=== PATIENT | male | born 1970 | race African-American/Black ===

== ENCOUNTER 2016-07-04 16:29 | Inpatient (IN) | payer SELFPAY ==
[2016-07-04] VITALS (8 sets, daily range): BP systolic 118–144; BP diastolic 79–101; PULSE 105–118; RESP 18–20; TEMP 98.5–100.6; O2SAT 97–100
[~2016-07-04] VITALS: Ht 180.3 cm; Wt 114.2 kg
[~2016-07-04 16:29] MED LIST: CYPR4TAB PO; PRED20 PO; Z.0.NO CURRENT MEDS
--- NOTE | 2016-07-04 16:58 | PD ---
HPI Chief Complaint: Cold / Flu Symptoms Time Seen by Provider: 16:48 Travel History International Travel<30 days: No Contact w/Intl Traveler<30days: No Traveled to known affect area: No History of Present Illness HPI This 45-year-old male says he been feeling weak for the last few days. He's had a sore throat and cough. He's had some loose stools. He is coughing up some thick phlegm. He does not smoke. He has no history of heart disease or hypertension. [facility] Past Medical History Medical History: Denies Significant Hx Diminished Hearing: No Hypertension: Yes Tetanus Vaccination: Unknown Influenza Vaccination: No Past Surgical History Surgical History: No Previous Surgery Social History Alcohol Use: No Tobacco Use: No Substance Use: No Allergies-Medications (Allergen,Severity, Reaction): Coded Allergies: No Known Allergies (Verified , 07/04/16) Reported Meds & Prescriptions Reported Meds & Active Scripts Active No Active Prescriptions or Reported Medications Review of Systems General / Constitutional: Positive: Fever, Chills Eyes: No: Diploplia, Blurred Vision Cardiovascular: No: Chest Pain or Discomfort, Palpitations Respiratory: Positive: Cough, Shortness of Breath, No: Hemoptysis Gastrointestinal: No: Vomiting Genitourinary: No: Urgency, Frequency Musculoskeletal: No: Myalgias Skin: No Rash Hematologic/Lymphatic: No: Easy Bruising Physical Exam Narrative GENERAL: Well-developed male. He has persistent tachycardia SKIN: Warm and dry. HEAD: Atraumatic. Normocephalic. EYES: Pupils equal and round. No scleral icterus. No injection or drainage. ENT: No nasal bleeding or discharge. Mucous membranes pink and moist. NECK: Trachea midline. No JVD. CARDIOVASCULAR: Regular rate and rhythm. No murmur appreciated. RESPIRATORY: No accessory muscle use. There are a few basilar rales Breath sounds equal bilaterally. GASTROINTESTINAL: Abdomen soft, non-tender, nondistended. Hepatic and splenic margins not palpable. MUSCULOSKELETAL: No obvious deformities. No clubbing. No cyanosis. No edema. NEUROLOGICAL: Awake and alert. No obvious cranial nerve deficits. Motor grossly within normal limits. Normal speech. PSYCHIATRIC: Appropriate mood and affect; insight and judgment normal. Data Data Last Documented VS Vital Signs Date Time Temp Pulse Resp B/P Pulse Ox O2 Delivery O2 Flow Rate FiO2 07/04/16 18:58 118 18 118/82 100 Room Air 1/12/17 16:48 100.6 Orders Influenzae A/B Antigen (07/04/16 16:49) Complete Blood Count With Diff (07/04/16 16:55) Basic Metabolic Panel (Bmp) (07/04/16 16:55) Sodium Chlor 0.9% 1000 Ml Inj (Ns 1000 M (07/04/16 17:00) Sodium Chlor 0.9% 1000 Ml Inj (Ns 1000 M (07/04/16 17:00) Acetaminophen (Tylenol) (07/04/16 17:00) Lactic Acid Sepsis Protocol (07/04/16 16:58) Chest, Single Ap (07/04/16 17:23) Blood Culture (07/04/16 17:34) Ceftriaxone Inj (Rocephin Inj) (07/04/16 17:45) Azithromycin Inj (Zithromax Inj) (07/04/16 17:45) B-Type Natriuretic Peptide (07/04/16 17:39) Ct Thorax/ Chest Wo Iv Contras (07/04/16 17:48) Urinalysis - C+S If Indicated (07/04/16 18:10) Troponin I (07/04/16 17:00) Electrocardiogram (07/04/16 18:49) Labs Laboratory Tests Test 07/04/16 07/04/16 15:55 17:00 B-Type Natriuretic Peptide 29 PG/ML White Blood Count 23.0 TH/MM3 Red Blood Count 4.99 MIL/MM3 Hemoglobin 11.9 GM/DL Hematocrit 37.3 % Mean Corpuscular Volume 74.7 FL Mean Corpuscular Hemoglobin 23.8 PG Mean Corpuscular Hemoglobin 31.8 % Concent Red Cell Distribution Width 18.9 % Platelet Count 462 TH/MM3 Mean Platelet Volume 8.2 FL Neutrophils (%) (Auto) 90.0 % Lymphocytes (%) (Auto) 5.1 % Monocytes (%) (Auto) 3.8 % Eosinophils (%) (Auto) 0.1 % Basophils (%) (Auto) 1.0 % Neutrophils # (Auto) 20.7 TH/MM3 Lymphocytes # (Auto) 1.2 TH/MM3 Monocytes # (Auto) 0.9 TH/MM3 Eosinophils # (Auto) 0.0 TH/MM3 Basophils # (Auto) 0.2 TH/MM3 CBC Comment AUTO DIFF Differential Comment AUTO DIFF CONFIRMED Sodium Level 138 MEQ/L Potassium Level 3.8 MEQ/L Chloride Level 100 MEQ/L Carbon Dioxide Level 26.2 MEQ/L Anion Gap 12 MEQ/L Blood Urea Nitrogen 10 MG/DL Creatinine 1.20 MG/DL Estimat Glomerular Filtration 80 ML/MIN Rate Random Glucose 150 MG/DL Lactic Acid Level 2.4 mmol/L Calcium Level 8.7 MG/DL Troponin I LESS THAN 0.02 NG/ML MDM Medical Decision Making Medical Screen Exam Complete: Yes Emergency Medical Condition: Yes Medical Record Reviewed: Yes Differential Diagnosis Differential includes influenza, pneumonia, Narrative Course His white count is quite elevated at 23,000. Chest x-ray is read as showing mild central pulmonary vascular congestion and cardiomegaly. CT thorax was obtained and shows moderate pericardial effusion. His lactate is elevated at 2.4 Sepsis Criteria SIRS Criteria (2 or more): Heart rate over 90, WBC > 07100, < 4000 or > 10% bands Severe Sepsis (+one): Lactate >2 Diagnosis Primary Impression: Sepsis Qualified Code: A41.9 - Sepsis, due to unspecified organism Scripts No Active Prescriptions or Reported Meds Imtiaz Philippe MD Jul 04, 2016 16:58
[2016-07-04] MEDS ORDERED: ACETAMINOPHEN 500 MG CPLT PO ONE (17:00)
[2016-07-04] MEDS ORDERED: SODIUM CHLOR 0.9% 1000 ML INJ 1,000 ML IV ONE ×2 (17:00)
[2016-07-04 17:23] LABS: AUTOMATED NEUTROPHIL # 20.7 TH/MM3 (1.8-7.7); BASOPHIL # 0.2 TH/MM3 (0-0.2); EOSINOPHIL % 0.1 % (0.0-4.0); HEMATOCRIT 37.3 % (39.0-51.0); LYMPH % 5.1 % (9.0-44.0); LYMPHOCYTE # 1.2 TH/MM3 (1.0-4.8); MEAN CELL VOLUME 74.7 FL (80.0-100.0); MEAN CORPUSCULAR HEMOGLOBIN 23.8 PG (27.0-34.0); MEAN CORPUSCULAR HGB CONC 31.8 % (32.0-36.0); MONO % 3.8 % (0.0-8.0); PLATELET COUNT 462 TH/MM3 (150-450); RED BLOOD COUNT 4.99 MIL/MM3 (4.50-5.90); RED CELL DISTRIBUTION WIDTH 18.9 % (11.6-17.2)
[2016-07-04 17:24] LABS: HEMO FLAGS AUTO DIFF
[2016-07-04 17:29] LABS: CHLORIDE 100 MEQ/L (98-107); POTASSIUM 3.8 MEQ/L (3.5-5.1); SODIUM (NA) 138 MEQ/L (136-145)
[2016-07-04 17:32] LABS: ANION GAP 12 MEQ/L (5-15); BICARBONATE 26.2 MEQ/L (21.0-32.0); BLOOD UREA NITROGEN 10 MG/DL (7-18)
[2016-07-04 17:35] LABS: GLOMERULAR FILTRATION RATE 80 ML/MIN (>89)
--- NOTE | 2016-07-04 17:42 | RADHPO ---
EXAM DATE/TIME: 07/04/2016 17:28 [facility] COMPARISON: No previous studies available for comparison. INDICATIONS : Patient states cough. MEDICAL HISTORY : None. SURGICAL HISTORY : None. ENCOUNTER: Initial ACUITY: 1 day PAIN SCORE: 1/10 LOCATION: Bilateral chest FINDINGS: The heart is enlarged. Mild central pulmonary vascular congestion is noted. CONCLUSION: 1. Mild central pulmonary vascular congestion. 2. Cardiomegaly. Angelito Goddard MD on July 04, 2016 at 17:33 Board Certified Radiologist. This report was verified electronically.
[2016-07-04] MEDS ORDERED: AZITHROMYCIN INJ 500 MG in SODIUM CHLOR 0.9% 250 ML INJ 250 ML IV ONE (17:45)
[2016-07-04] MEDS ORDERED: cefTRIAXone INJ 2,000 MG in SODIUM CHLORIDE 0.9% INJ 100 ML IV ONE (17:45)
[2016-07-04 17:49] LABS: SCAN/DIFF AUTO DIFF CONFIRMED
--- NOTE | 2016-07-04 18:48 | RADHPO ---
EXAM DATE/TIME: 07/04/2016 18:03 [facility] COMPARISON: No previous studies available for comparison. INDICATIONS : Weakness. Evaluate for pneumonia. RADIATION DOSE: 23.23 CTDIvol (mGy) MEDICAL HISTORY : Hypertension. SURGICAL HISTORY : None. ENCOUNTER: Initial ACUITY: 3 days PAIN SCALE: 0/10 LOCATION: Chest TECHNIQUE: Volumetric scanning of the chest was performed. Using automated exposure control and adjustment of the mA and/or kV according to patient size, radiation dose was kept as low as reasonab ly achievable to obtain optimal diagnostic quality images. FINDINGS: There is very minimal pleural thickening. There is no pleural effusion, pneumothorax or alveolar consolidation. There is no axillary or mediastinal adenopathy appreciated. The patient does have a moderate pericardial effusion. Portion of the liver and spleen identified ar e free of focal defects. CONCLUSION: Moderate size pericardial effusion. Jacob Ibrahim MD FACR on July 04, 2016 at 18:34 Board Certified Radiologist. This report was verified electronically.
[2016-07-04 19:15] LABS: LACTIC ACID GHOST NOT REPORTABLE
[2016-07-04] MEDS ORDERED: NALOXONE HCL 0.4 MG/ML AMP IV PRN (20:00)
[2016-07-04] MEDS ORDERED: SODIUM CHLORIDE 0.9% FLUSH 5 ML FLUSH FLUSH PRN (20:00)
[2016-07-04 20:16] LABS: BLOOD, URINE NEG (NEG); GLUCOSE,URINE NEG (NEG); KETONE, URINE NEG (NEG); NITRITE,URINE NEG (NEG); PH, URINE 5.5 (5.0-8.5)
[2016-07-04 20:24] LABS: BARBITURATES, URINE NEG (NEG); COCAINE, URINE NEG (NEG)
[2016-07-04 20:25] LABS: AMPHETAMINE, URINE NEG (NEG)
[2016-07-04 20:31] LABS: URINE COLOR YELLOW (YELLW/STRAW)
[2016-07-04 20:32] LABS: HYALINE CAST, URINE 0-2 /lpf (RARE); MUCUS URINE FEW /lpf (OCC)
[2016-07-04 20:33] LABS: COMMENT (UR) CULT NOT INDICATED; CULTURE IF INDICATED CULT NOT INDICATED; RBC, URINE 0-3 /hpf (0-3); SQUAMOUS EPITHELIAL CELL URINE 0-5 /hpf (0-5); WBC, URINE 0-2 /hpf (0-5)
[2016-07-04] MEDS: SODIUM CHLORIDE 0.9% FLUSH 5 ML FLUSH FLUSH SCH (20:53)
[2016-07-05] VITALS (7 sets, daily range): BP systolic 135–153; BP diastolic 92–110; PULSE 18–122; RESP 18–20; TEMP 98.8–101.6; O2SAT 9–100
[2016-07-05] MEDS ORDERED: ACETAMINOPHEN 325 MG TAB PO PRN (04:30)
[2016-07-05 06:28] LABS: AUTOMATED NEUTROPHIL # 20.8 TH/MM3 (1.8-7.7); BASOPHIL % 0.2 % (0.0-2.0); HEMATOCRIT 31.9 % (39.0-51.0); LYMPHOCYTE # 1.7 TH/MM3 (1.0-4.8); MEAN CELL VOLUME 74.4 FL (80.0-100.0); MEAN CORPUSCULAR HEMOGLOBIN 24.4 PG (27.0-34.0); MEAN CORPUSCULAR HGB CONC 32.8 % (32.0-36.0); MONO % 5.8 % (0.0-8.0); PLATELET COUNT 376 TH/MM3 (150-450); RED BLOOD COUNT 4.29 MIL/MM3 (4.50-5.90); RED CELL DISTRIBUTION WIDTH 18.6 % (11.6-17.2); WHITE BLOOD COUNT 23.9 TH/MM3 (4.0-11.0)
[2016-07-05 06:34] LABS: HEMO FLAGS AUTO DIFF; POTASSIUM 3.4 MEQ/L (3.5-5.1)
[2016-07-05 06:38] LABS: BICARBONATE 25.5 MEQ/L (21.0-32.0)
[2016-07-05 07:01] LABS: SCAN/DIFF AUTO DIFF CONFIRMED
[2016-07-05] MEDS: LEVOFLOXACIN 750 MG PREMIX INJ 150 ML IV SCH (08:29)
[2016-07-05] MEDS: SODIUM CHLORIDE 0.9% FLUSH 5 ML FLUSH FLUSH SCH ×2 (08:29→22:58)
[2016-07-05] MEDS ORDERED: POTASSIUM PHOSPHATE INJ 30 MMOL in SODIUM CHLOR 0.9% 250 ML INJ 250 ML IV ONE (10:00)
--- NOTE | 2016-07-05 10:53 | HHI.HP ---
[facility] Primary Care Physician No Primary Care Physician Admission Diagnosis SEPSIS Diagnoses: Chief Complaint: "Cold symptoms " Travel History International Travel<30 Days: No Contact w/Intl Traveler <30 Da: No Traveled to Known Affected Are: No History of Present Illness Patient is a 45-year-old gentleman who is generally healthy who has been evaluated the emergency room for fever symptoms for the last 2 days. He says he had a cold and cough and sinus congestion decreased appetite. He looked ill his mother told him he should come to the hospital. On arrival patient was tachycardic with a fever and leukocytosis. He is admitted for sepsis. Patient was noted on imaging to have pericardial effusion. He denies any heart history. Patient has no chest pain and he is not short of breath. He is not hypoxemic. This point the patient's EKG was reviewed by me and does appear to have some poor R-wave progression and is in normal sinus rhythm. For these reasons the patient was admitted to the hospital Review of Systems Constitutional: COMPLAINS OF: Fever, Change in appetite, Night Sweats, DENIES : Diaphoretic episodes, Fatigue, Weight gain, Weight loss, Chills, Dizziness Endocrine: DENIES: Heat/cold intolerance, Polydipsia, Polyuria, Polyphagia Eyes: DENIES: Blurred vision, Diplopia, Eye inflammation, Eye pain, Vision loss , Photosensitivity, Double Vision Ears, nose, mouth, throat: DENIES: Tinnitus, Hearing loss, Vertigo, Nasal discharge, Oral lesions, Throat pain, Hoarseness, Ear Pain, Running Nose, Epistaxis, Sinus Pain, Toothache, Odynophagia Respiratory: DENIES: Apneas, Cough, Snoring, Wheezing, Hemoptysis, Sputum production, Shortness of breath Cardiovascular: DENIES: Chest pain, Palpitations, Syncope, Dyspnea on Exertion , PND, Lower Extremity Edema, Orthopnea, Claudication Gastrointestinal: DENIES: Abdominal pain, Black stools, Bloody stools, Constipation, Diarrhea, Nausea, Vomiting, Difficulty Swallowing, Anorexia Genitourinary: DENIES: Sexual dysfunction, Urinary frequency, Urinary incontinence, Urgency, Hematuria, Dysuria, Nocturia, Penile Discharge, Testicular Pain, Testicular Swelling Musculoskeletal: DENIES: Joint pain, Muscle aches, Stiffness, Joint Swelling, Back pain, Neck pain Integumentary: DENIES: Abnormal pigmentation, Nail changes, Pruritus, Rash Hematologic/lymphatic: DENIES: Bruising, Lymphadenopathy Immunologic/allergic: DENIES: Eczema, Urticaria Neurologic: DENIES: Abnormal gait, Headache, Localized weakness, Paresthesias, Seizures, Speech Problems, Tremor, Poor Balance Psychiatric: DENIES: Anxiety, Confusion, Mood changes, Depression, Hallucinations, Agitation, Suicidal Ideation, Homicidal Ideation, Delusions Past Family Social History Past Medical History Hypertension Past Surgical History Denies Reported Medications Reviewed in the medical record Allergies: Coded Allergies: No Known Allergies (Verified , 07/04/16) Active Ordered Medications Reviewed in the medical record Family History Mother has diabetes and hypertension, father from liver failure in his 60s , sister has diabetes mellitus hypertension Physical Exam Vital Signs Vital Signs Date Time Temp Pulse Resp B/P Pulse Ox O2 Delivery O2 Flow Rate FiO2 07/05/16 08:00 18 07/05/16 08:00 98.8 108 18 136/100 99 07/05/16 04:00 101.6 122 20 142/106 97 07/05/16 00:00 99.7 121 18 136/106 9 07/04/16 22:00 98.5 111 20 141/96 98 07/04/16 21:02 115 07/04/16 20:56 99.7 109 20 144/79 98 07/04/16 19:14 105 19 135/89 98 Room Air 07/04/16 19:14 Room Air 07/04/16 18:58 118 18 118/82 100 Room Air 07/04/16 17:25 114 20 144/89 97 Room Air 07/04/16 16:54 114 20 98 Room Air 07/04/16 16:48 100.6 114 20 125/101 98 Room Air 07/04/16 16:34 100.6 114 18 98 Physical Exam GENERAL: This is a well-nourished, well-developed patient, in no apparent distress. SKIN: No rashes, ecchymoses or lesions. Cool and dry. HEAD: Atraumatic. Normocephalic. No temporal or scalp tenderness. EYES: Pupils equal round and reactive. Extraocular motions intact. No scleral icterus. No injection or drainage. ENT: Nose without bleeding, purulent drainage or septal hematoma. Throat without erythema, tonsillar hypertrophy or exudate. Uvula midline. Airway patent. NECK: Trachea midline. No JVD or lymphadenopathy. Supple, nontender, no meningeal signs. CARDIOVASCULAR: Regular rate and rhythm with muffled heart sounds but without murmurs, gallops, or rubs. RESPIRATORY: Clear to auscultation. Breath sounds equal bilaterally. No wheezes , rales, or rhonchi. GASTROINTESTINAL: Abdomen soft, non-tender, nondistended. No hepato-splenomegaly , or palpable masses. No guarding. MUSCULOSKELETAL: Extremities without clubbing, cyanosis, or edema. No joint tenderness, effusion, or edema noted. No calf tenderness. Negative Homans sign bilaterally. NEUROLOGICAL: Awake and alert. Cranial nerves II through XII intact. Motor and sensory grossly within normal limits. Five out of 5 muscle strength in all muscle groups. Normal speech. Laboratory Laboratory Tests Test 07/04/16 07/04/16 07/04/16 07/04/16 15:55 17:00 19:45 20:05 B-Type Natriuretic Peptide 29 White Blood Count 23.0 Red Blood Count 4.99 Hemoglobin 11.9 Hematocrit 37.3 Mean Corpuscular Volume 74.7 Mean Corpuscular Hemoglobin 23.8 Mean Corpuscular Hemoglobin 31.8 Concent Red Cell Distribution Width 18.9 Platelet Count 462 Mean Platelet Volume 8.2 Neutrophils (%) (Auto) 90.0 Lymphocytes (%) (Auto) 5.1 Monocytes (%) (Auto) 3.8 Eosinophils (%) (Auto) 0.1 Basophils (%) (Auto) 1.0 Neutrophils # (Auto) 20.7 Lymphocytes # (Auto) 1.2 Monocytes # (Auto) 0.9 Eosinophils # (Auto) 0.0 Basophils # (Auto) 0.2 CBC Comment AUTO DIFF Differential Comment AUTO DIFF CONFIRMED Sodium Level 138 Potassium Level 3.8 Chloride Level 100 Carbon Dioxide Level 26.2 Anion Gap 12 Blood Urea Nitrogen 10 Creatinine 1.20 Estimat Glomerular Filtration 80 Rate Random Glucose 150 Lactic Acid Level 2.4 1.9 Calcium Level 8.7 Troponin I LESS THAN 0.02 Urine Color YELLOW Urine Turbidity CLEAR Urine pH 5.5 Urine Specific [place] 1.030 Urine Protein 100 Urine Glucose (UA) NEG Urine Ketones NEG Urine Occult Blood NEG Urine Nitrite NEG Urine Bilirubin NEG Urine Leukocyte Esterase NEG Urine RBC 0-3 Urine WBC 0-2 Urine Squamous Epithelial 0-5 Cells Urine Amorphous Sediment FEW Urine Hyaline Casts 0-2 Urine Fine Granular Casts 0-2 Urine Mucus FEW Microscopic Urinalysis Comment CULT NOT INDICATED Urine Opiates Screen NEG Urine Barbiturates Screen NEG Urine Amphetamines Screen NEG Urine Benzodiazepines Screen NEG Urine Cocaine Screen NEG Urine Cannabinoids Screen POS Test 07/05/16 05:08 White Blood Count 23.9 Red Blood Count 4.29 Hemoglobin 10.5 Hematocrit 31.9 Mean Corpuscular Volume 74.4 Mean Corpuscular Hemoglobin 24.4 Mean Corpuscular Hemoglobin 32.8 Concent Red Cell Distribution Width 18.6 Platelet Count 376 Mean Platelet Volume 8.5 Neutrophils (%) (Auto) 87.0 Lymphocytes (%) (Auto) 7.0 Monocytes (%) (Auto) 5.8 Eosinophils (%) (Auto) 0.0 Basophils (%) (Auto) 0.2 Neutrophils # (Auto) 20.8 Lymphocytes # (Auto) 1.7 Monocytes # (Auto) 1.4 Eosinophils # (Auto) 0.0 Basophils # (Auto) 0.0 CBC Comment AUTO DIFF Differential Comment AUTO DIFF CONFIRMED Sodium Level 138 Potassium Level 3.4 Chloride Level 102 Carbon Dioxide Level 25.5 Anion Gap 11 Blood Urea Nitrogen 9 Creatinine 0.98 Estimat Glomerular Filtration 101 Rate Random Glucose 119 Calcium Level 8.7 Date/Time Procedure Status Source Growth 07/04/16 17:08 Aerobic Blood Culture Received Blood Peripheral Pending 07/04/16 17:08 Anaerobic Blood Culture Received Blood Peripheral Pending 07/04/16 16:50 Influenza Types A,B Antigen (MALISSA) - Final Complete Nasal Washing NEGATIVE FOR FLU A AND B ANTIGEN.... Result Diagram: 07/05/16 0508 07/05/16 0508 Septic Shock Reassessment Heart: Regular rate and rhythm Lungs: Clear Skin: Warm Peripheral Pulses: Bounding Right Radial Bounding Left Radial Bounding Right Popliteal Bounding Left Popliteal Bounding Right Dorsalis Pedis Bounding Left Dorsalis Pedis Bounding Right Posterior Tibial Bounding Left Posterior Tibial Assessment and Plan Problem List: (1) Sepsis ICD Code: A41.9 Status: Acute Plan: Patient with a recent viral infection and now pericardial effusion. We' ll follow up temperature and heart rate which are improving. Continue replace potassium (2) Pericardial effusion ICD Code: I31.3 Status: Acute Plan: Echocardiogram pending. May be postviral We'll follow-up closely (3) HTN (hypertension) ICD Code: I10 Status: Acute Plan: Patient was on lisinopril hydrochlorothiazide but discontinued them at some point. We'll continue those. Add some Lasix today and follow Physician Certification 2 Midnight Certification Type: Admission for Inpatient Services Order for Inpatient Services The services are ordered in accordance with Medicare regulations or non- Medicare payer requirements, as applicable. In the case of services not specified as inpatient-only, they are appropriately provided as inpatient services in accordance with the 2-midnight benchmark. Estimated LOS (days): 3 3 days is the estimated time the patient will need to remain in the hospital, assuming treatment plan goals are met and no additional complications. Post-Hospital Plan: Home Problem Qualifiers (1) Sepsis: Qualified Code: A41.9 - Sepsis, due to unspecified organism Rika Moy MD Jul 05, 2016 10:52
[2016-07-05] MEDS ORDERED: FUROSEMIDE 20 MG/2 ML VIAL IV PUSH ONE (11:00)
[2016-07-05] MEDS: LISINOPRIL 20 MG TAB PO SCH (11:54)
--- NOTE | 2016-07-05 17:54 | EKG ---
Date Performed: 07/04/2016 Time Performed: 18:52:02 PTAGE: 45 years EKG: Sinus tachycardia Poor R wave progression - probable normal variant Inferior T wave changes are nonspecific Borderline ECG NO PREVIOUS TRACING DOCTOR: Brittney Hackett Interpretating Date/Time 07/05/2016 17:53:19
[2016-07-05] MEDS ORDERED: cloNIDine HCL 0.1 MG TAB PO PRN (21:15)
--- NOTE | 2016-07-05 22:01 | EC ---
Study Study Date:07/05/2016 STUDY CONCLUSIONS SUMMARY - Procedure narrative: Transthoracic echocardiography. Image quality was suboptimal. Scanning was performed from the parasternal, apical, and subcostal acoustic windows. - Left ventricle: The cavity size was normal. Wall thickness was at the upper limits of normal. Systolic function was normal. The estimated ejection fraction was in the range of 50% to 55%. In the apical views, ejection fraction seems closer to 40% but these views appear off axis. Although no diagnostic regional wall motion abnormality was identified, this possibility cannot be completely excluded on the basis of this study. - Tricuspid valve: Trace to mild regurgitation. - Pulmonary arteries: PA peak pressure: 41mm Hg (S). If LV function is below 40, please consider prescribing an ACEI or ARB or document rationale for non-use. PROCEDURE DATA STUDY STATUS: Elective. Procedure: Transthoracic echocardiography. Image quality was suboptimal. Scanning was performed from the parasternal, apical, and subcostal acoustic windows. Study completion: The patient tolerated the procedure well. Transthoracic echocardiography. M-mode, complete 2D, complete spectral Doppler, and color Doppler. Height: Height: 71in. Weight: Weight: 250.5lb. Body mass index: BMI: 35kg/m^2. Body surface area: BSA: 2.32m^2. Patient status: Inpatient. CARDIAC ANATOMY LEFT VENTRICLE: The cavity size was normal. Wall thickness was at the upper limits of normal. Systolic function was normal. The estimated ejection fraction was in the range of 50% to 55%. In the apical views, ejection fraction seems closer to 40% but these views appear off axis. Although no diagnostic regional wall motion abnormality was identified, this possibility cannot be completely excluded on the basis of this study. AORTIC VALVE: Trileaflet; normal thickness leaflets. Doppler: Transvalvular velocity was within the normal range. There was no stenosis. No regurgitation. Valve area: 2.61cm^2(VTI). Indexed valve area: 1.13cm^2/m^2 (VTI). Valve area: 3.28cm^2 (Vmax). Indexed valve area: 1.41cm^2/m^2 (Vmax). Mean gradient: 2mm Hg (S). AORTA: Aortic root: The aortic root was normal in size. MITRAL VALVE: Structurally normal valve. Doppler: Transvalvular velocity was within the normal range. There was no evidence for stenosis. No regurgitation. LEFT ATRIUM: The atrium was normal in size. RIGHT VENTRICLE: The cavity size was normal. Wall thickness was normal. PULMONIC VALVE: Doppler: Transvalvular velocity was within the normal range. There was no evidence for stenosis. No regurgitation. TRICUSPID VALVE: Structurally normal valve. Doppler: Transvalvular velocity was within the normal range. Trace to mild regurgitation. PULMONARY ARTERY: The main pulmonary artery was normal-sized. Systolic pressure was within the normal range. RIGHT ATRIUM: The atrium was normal in size. PERICARDIUM: Possible small circumferential pericardial effusion with no evidence for tamponade. SYSTEMIC VEINS: Inferior vena cava: The vessel was normal in size. Patient weight: 250.5lb _Ejection fraction:_ 65-75% _Fractional shortening:_ 32% up to 5Kg 5-11.5Kg 11.6-22.9Kg 23-45Kg 45-57Kg Aortic Root 7-13 <17 13-22 17-27 17-27 LA diam 6-13 <23 24-38 33-47 37-40 RVID 10-17 7-15 7-15 7-18 8-17 LVIDd 12-22 <32 24-38 33-47 37-40 LVPW 2-4 3-6 5-7 6-8 7-8 IVS 2-4 3-6 5-7 6-8 7-8 BASIC MEASUREMENTS ADULT NORMAL Left ventricle LV internal dimension, ED, chordal *52.1 mm 43-52 level, PLAX LV internal dimension, ES, chordal *40.4 mm 23-38 level, PLAX Fractional shortening, chordal level, *22 % >29 PLAX LV posterior wall thickness, ED 10.2 mm IVS/LVPW ratio, ED 0.99 <1.3 Ventricular septum Septal thickness, ED 10.1 mm Aortic valve Leaflet separation 20 mm 15-26 Aorta Root diameter, ED 38 mm Left atrium Anterior-posterior dimension 34 mm Anterior-posterior dimension index 1.47 cm/m^2 <2.2 Right ventricle RV internal dimension, ED, PLAX *50.1 mm 19-38 BASIC MEASUREMENTS ADULT NORMAL Aortic valve Leaflet separation 20 mm 15-26 DOPPLER MEASUREMENTS ADULT NORMAL Main pulmonary artery Pressure, S *41 mm Hg =30 Aortic valve Peak velocity, S 95.1 cm/s Mean velocity, S 69.1 cm/s VTI, S 16.2 cm Mean gradient, S 2 mm Hg Valve area, VTI 2.61 cm^2 Valve area index, VTI 1.13 cm^2/m^2 Valve area, Vmax 3.28 cm^2 Valve area index, Vmax 1.41 cm^2/m^2 Mitral valve Peak E-wave velocity 66.8 cm/s Peak A-wave velocity 49.9 cm/s Peak E/A ratio 1.3 Tricuspid valve Regurgitant peak velocity 288 cm/s Peak RV-RA gradient, S 33 mm Hg Maximal regurgitant velocity 288 cm/s Systemic veins Estimated CVP 10 mm Hg Right ventricle RV pressure, S *43 mm Hg <30 Pulmonic valve Peak velocity, S 73.5 cm/s LEGEND: Mean values are shown as u=mean value. Asterisk (*) lofton values outside specified normal range. Prepared and signed by Raúl Buckley [id number]
[2016-07-06 00:03] VITALS: BP 142/94; PULSE 115; RESP 20; TEMP 100.4; O2SAT 96
[2016-07-06 08:00] VITALS: BP 141/100; PULSE 99; RESP 20; TEMP 98.7; O2SAT 97
[2016-07-06] MEDS: LEVOFLOXACIN 750 MG PREMIX INJ 150 ML IV SCH (08:34)
[2016-07-06] MEDS: LISINOPRIL 20 MG TAB PO SCH (08:34)
[2016-07-06] MEDS: SODIUM CHLORIDE 0.9% FLUSH 5 ML FLUSH FLUSH SCH (08:35)
[2016-07-06] MEDS ORDERED: HYDROCHLOROTHIAZIDE 12.5 MG CAP PO SCH (09:00)
[2016-07-06] MEDS ORDERED: LISI-515 PO (10:57)
[2016-07-06] MEDS ORDERED: HYDR25TA5 PO (10:57)
[2016-07-06] MEDS ORDERED: LEVA750T PO (10:57)
--- NOTE | 2016-07-06 10:57 | HHI.DCPOC ---
Discharge Care Plan Diagnosis: (1) Sepsis (2) HTN (hypertension) Goals to Promote Your Health * To prevent worsening of your condition and complications * To maintain your health at the optimal level Directions to Meet Your Goals Take your medications as prescribed Follow your dietary instruction Follow activity as directed Keep your appointments as scheduled Take your immunizations and boosters as scheduled If your symptoms worsen call your PCP, if no PCP go to Urgent Care Center or Emergency Room Smoking is Dangerous to Your Health. Avoid second hand smoke Call the 24-hour hour crisis hotline for domestic abuse at Rika Moy MD Jul 06, 2016 10:57
--- NOTE | 2016-07-06 11:01 | HHI.DS ---
Discharge Summary Admission Date Jul 04, 2016 at 19:16 Discharge Date: Jul 06, 2016 Admitting Diagnosis SEPSIS (1) Sepsis ICD Code: A41.9 (2) Pericardial effusion ICD Code: I31.3 (3) HTN (hypertension) ICD Code: I10 Procedures echo no evidence of tamponade, EF slightly reduced Brief History - From Admission Patient is a 45-year-old gentleman who is generally healthy who has been evaluated the emergency room for fever symptoms for the last 2 days. He says he had a cold and cough and sinus congestion decreased appetite. He looked ill his mother told him he should come to the hospital. On arrival patient was tachycardic with a fever and leukocytosis. He is admitted for sepsis. Patient was noted on imaging to have pericardial effusion. He denies any heart history. Patient has no chest pain and he is not short of breath. He is not hypoxemic. This point the patient's EKG was reviewed by me and does appear to have some poor R-wave progression and is in normal sinus rhythm. For these reasons the patient was admitted to the hospital CBC/BMP: 07/05/16 0508 07/05/16 0508 Significant Findings Laboratory Tests Test 07/04/16 07/04/16 07/05/16 17:00 20:05 05:08 White Blood Count 23.0 TH/MM3 23.9 TH/MM3 (4.0-11.0) (4.0-11.0) Hemoglobin 11.9 GM/DL 10.5 GM/DL (13.0-17.0) (13.0-17.0) Hematocrit 37.3 % 31.9 % (39.0-51.0) (39.0-51.0) Mean Corpuscular Volume 74.7 FL 74.4 FL (80.0-100.0) (80.0-100.0) Mean Corpuscular Hemoglobin 23.8 PG 24.4 PG (27.0-34.0) (27.0-34.0) Mean Corpuscular Hemoglobin 31.8 % Concent (32.0-36.0) Red Cell Distribution Width 18.9 % 18.6 % (11.6-17.2) (11.6-17.2) Platelet Count 462 TH/MM3 (150-450) Neutrophils (%) (Auto) 90.0 % 87.0 % (16.0-70.0) (16.0-70.0) Lymphocytes (%) (Auto) 5.1 % 7.0 % (9.0-44.0) (9.0-44.0) Neutrophils # (Auto) 20.7 TH/MM3 20.8 TH/MM3 (1.8-7.7) (1.8-7.7) Estimat Glomerular Filtration 80 ML/MIN (>89) Rate Random Glucose 150 MG/DL 119 MG/DL (74-106) (74-106) Lactic Acid Level 2.4 mmol/L (0.4-2.0) Troponin I LESS THAN 0.02 NG/ML (0.02-0.05) Urine Protein 100 mg/dL (NEG-TRACE) Urine Mucus FEW /lpf (OCC) Urine Cannabinoids Screen POS (NEG) Red Blood Count 4.29 MIL/MM3 (4.50-5.90) Monocytes # (Auto) 1.4 TH/MM3 (0-0.9) Potassium Level 3.4 MEQ/L (3.5-5.1) Imaging Last Impressions Chest CT [id number]/04/161747 Signed Impressions: Service Date/Time: June 18:03 - CONCLUSION: Moderate size pericardial effusion. Jacob Ibrahim MD FACR Chest X-Ray 07/04/16 1723 Signed Impressions: Service Date/Time: June 17:28 - CONCLUSION: 1. Mild central pulmonary vascular congestion. 2. Cardiomegaly. Angelito Goddard MD Pt update on day of discharge Patient seen and evaluated today in follow-up for fever and likely viral syndrome. Heart rate and temperature improved. Echo shows minimal pericardial effusion. Patient feels very well and will like to go home. I did advise patient regarding diagnosis and need for blood pressure control. He expressed understanding Hospital Course This patient is a 45-year-old gentleman came in with viral syndromes and had some leukocytosis and evidence of sepsis. Symptoms seem to improve with short course of antibiotics. Patient had evidence of pericardial effusion on images however tachycardic and showed minimal effusion. Blood pressure was elevated and was treated with oral medications successfully. Patient was discharged home Pt Condition on Discharge: Good Discharge Disposition: Discharge Home Discharge Time: > 30 minutes Discharge Instructions DIET: Follow Instructions for: Heart Healthy Diet Activities you can perform: Regular-No Restrictions New Medications: Hydrochlorothiazide (Hydrochlorothiazide) 25 Mg Tab 25 MG PO DAILY Blood Pressure Management #30 Ref 0 TAB Levofloxacin (Levaquin) 750 Mg Tab 750 MG PO DAILY Infection #10 Ref 0 TAB Lisinopril (Lisinopril) 20 Mg Tab 20 MG PO DAILY Blood Pressure Management #31 TAB Rika Moy MD Jul 06, 2016 11:01
[2016-07-06] MEDS ORDERED: POTASSIUM PHOSPHATE INJ 30 MMOL in SODIUM CHLOR 0.9% 250 ML INJ 250 ML IV ONE (12:00)
== END 2016-07-06 11:42 | disposition home or self-care (01) | DRG 872 ==
LOC: PHED 16:29 → PHEDA 19:16 → PH3A 20:38
PROVIDERS: ADMIT Hospitalist; ATTEND Hospitalist
DX: A41.9 Sepsis, unspecified organism (principal); I31.3 Pericardial effusion (noninflammatory); I11.9 Hypertensive heart disease without heart failure; I51.7 Cardiomegaly
CPT/HCPCS: 71010; 71250; 80048; 80307; 81001; 83605; 83880; 84484; 85025; 87040; 87804; 93005; 93306; 96361; 96365; 96375; J0456; J0696; J1940; J1956; J7030; J7050